=== PATIENT | male | born 1940 | race Caucasian/White ===

== ENCOUNTER 2024-10-16 09:24 | Outpatient (CLI) | payer OTHER | END 2024-10-16 23:59 | disposition home or self-care (01) | LOC: CARD DIAG 09:24 | PROVIDERS: ATTEND Chiropractor | DX: I08.8 Other rheumatic multiple valve diseases (principal); I25.10 Atherosclerotic heart disease of native coronary artery without angina pectoris | CPT/HCPCS: 93306 ==